=== PATIENT | male | born 1950 | race Caucasian/White ===

== ENCOUNTER → 2017-01-23 | Outpatient (CLI) | payer OTHER ==
[~2017-01-23] MED LIST: ASPI81TA28 PO; BNC/20125 PO; SIMV10TA2 PO
[2017-01-23 11:17] LABS: ESTIMATED AVERAGE GLUCOSE 120 mg/dl; HA1C FLAG Normal (Normal)
[2017-01-23 11:29] LABS: CALCIUM 8.8 mg/dl (8.5-10.1)
[2017-01-23 11:32] LABS: ALT/SGPT 22 U/L (12-78); BLOOD UREA NITROGEN 22 mg/dl (7-18); BUN/CREATININE RATIO 22.7 (10-20); CARBON DIOXIDE 26 mmol/L (21-32); CHLORIDE 107 mmol/L (98-107); CHOLESTEROL 159 mg/dl (0-200); CREATININE 0.98 mg/dl (0.60-1.40); GLUCOSE 103 mg/dl (70-99); POTASSIUM 3.4 mmol/L (3.5-5.1); SODIUM 144 mmol/L (136-145); TRIGLYCERIDES 34 mg/dl (0-150); VERY LOW DENSITY LIPOPROT CALC 7 mg/dl
[2017-01-23 11:36] LABS: ALKALINE PHOSPHATASE 34 U/L (45-117); AST/SGOT 15 U/L (15-37); CHOLESTEROL/HDL RATIO 2.6; HDL CHOLESTEROL 61 mg/dl; LDL CHOLESTEROL CALCULATED 91 mg/dl
== END | disposition home or self-care (01) ==
LOC: C.LABBC 07:52
PROVIDERS: ATTEND Urology
DX: I10 Essential (primary) hypertension (principal); E78.00 Pure hypercholesterolemia, unspecified; Z11.59 Encounter for screening for other viral diseases; R73.03 Prediabetes

== ENCOUNTER → 2017-10-20 | Outpatient (CLI) | payer OTHER ==
[2017-10-20 11:08] LABS: HEMOGLOBIN A1C 5.8 % (4.5-5.6)
[2017-10-20 11:20] LABS: ALBUMIN 3.7 gm/dl (3.4-5.0); ALKALINE PHOSPHATASE 32 U/L (45-117); ALT/SGPT 22 U/L (12-78); AST/SGOT 13 U/L (15-37); BLOOD UREA NITROGEN 26 mg/dl (7-18); CALCIUM 8.6 mg/dl (8.5-10.1); CARBON DIOXIDE 26 mmol/L (21-32); CREATININE 0.89 mg/dl (0.60-1.40); GLUCOSE 101 mg/dl (70-99); SODIUM 139 mmol/L (136-145); TOTAL PROTEIN 7.3 gm/dl (6.4-8.2)
== END | disposition home or self-care (01) ==
LOC: C.LABBC 07:23
PROVIDERS: ATTEND Nurse Practitioner Adult Health
DX: I10 Essential (primary) hypertension (principal); E78.00 Pure hypercholesterolemia, unspecified; R73.03 Prediabetes; W57.XXXA Bitten or stung by nonvenomous insect and other nonvenomous arthropods, initial encounter; X58.XXXA Exposure to other specified factors, initial encounter; C61 Malignant neoplasm of prostate

== ENCOUNTER 2017-10-25 03:45 | Emergency (ER) | payer OTHER ==
[~2017-10-25] VITALS: Ht 177.8 cm; Wt 88.5 kg
[2017-10-25 03:50] VITALS: TEMP 36.7; Ht 177.8 cm; Wt 88.5 kg
[2017-10-25] MEDS ORDERED: LIDOCAINE/EPINEPHRINE 1% 20 ML VIAL ONE (04:11)
--- NOTE | 2017-10-25 04:28 | EMERGENCY ROOM VISIT NOTE ---
History Report prepared by Reinaldo: Elinor Sousa Under the Supervision of: Jaqueline RondonO. First contact with patient: 03:53 Chief Complaint: LACERATION/CUT (SUT/DERMABOND) Stated Complaint: LACERATION TO FOREHEAD ABOVE RT EYE Nursing Triage Summary: Patient reports that he woke up, fell out of his bed and hit his head on the end table. Patient reports that he did not have LOC. Laceration above right eyebrow , steri strip type dressing on from home. History of Present Illness The patient is a 67 year old male who presents to the Emergency Room with complaints of an episode of a laceration occurring prior to arrival. The patient states that he was dreaming and rolled out of bed. He reports that he hit his head on the wooden night stand that has been there for 20 years. He states that this has never happened to him before. He reports that he woke his up to look at it and she said to come here in case he needs stitches. The patient denies dizziness, lightheadedness, blurry visions, double vision, a headache, numbness, and tingling. He notes that he takes Aspirin. He notes that he is unsure when his last Tetanus shot was. Source of History: patient Onset: prior to arrival Position: head Quality: other (laceration, bleeding) Timing: other (episode) Associated Symptoms: No headache, No numbness Note: The patient denies dizziness, lightheadedness, blurry visions, double vision, and tingling Review of Systems See HPI for pertinent positives & negatives. A total of 6 systems reviewed and were otherwise negative. Past Medical & Surgical Medical Problems: (1) HTN (hypertension) Family History No pertinent family history Social History Smoking Status: Never Smoker Marital Status: Housing Status: lives with family Occupation Status: employed Current/Historical Medications Scheduled Aspirin (Aspirin Ec), 81 MG PO DAILY Olmesartan/Hctz (Benicar Hct 20/12.5), 1 TAB PO DAILY Simvastatin (Zocor), 10 MG PO QAM Allergies Coded Allergies: No Known Allergies (Verified , 10/03/02) Physical Exam Vital Signs Date Time Temp Pulse Resp B/P (MAP) Pulse Ox O2 Delivery O2 Flow Rate FiO2 10/25/17 04:54 64 18 128/78 96 10/25/17 03:50 36.7 64 18 131/88 96 Room Air Physical Exam GENERAL: alert, well appearing, well nourished, no distress, non-toxic HEAD: 1.5 cm vertical laceration just superior ro the right eyebrow. EYE EXAM: normal conjunctiva, PERRL and EOM's grossly intact OROPHARYNX: no exudate, no erythema, lips, buccal mucosa, and tongue normal and mucous membranes are moist NECK: supple, no nuchal rigidity, no adenopathy, non-tender, FROM, no midline tenderness or step off SKIN: no rashes and no bruising UPPER EXTREMITIES: upper extremities are grossly normal. Full range of motion, no deformities, normal pulses. LOWER EXTREMITIES: No pitting edema. Full range of motion, no deformities, normal pulses. NEURO EXAM: Normal sensorium, cranial nerves II-XII grossly intact, normal speech, no gross weakness of arms, no gross weakness of legs. Medical Decision & Procedures Medications Administered Medications (Trade) Dose Ordered Sig/Mariajose Route Start Time Stop Time Status Last Admin Dose Admin Diphtheria/ Pertussis/Tetanus Vacc (Adacel Inj) 0.5 ml ONCE ONCE IM. 10/25/17 04:30 10/25/17 04:31 DC 10/25/17 04:44 0.5 ML Procedure Location: Superior to the right eyebrow Total length: 1.5 cm Complexity: Simple Verbal consent was obtained after the risks and benefits were explained, including but not limited to bleeding, scarring, infection, pain, and bone/joint /nerve damage. At this time, the risks of the procedure are less than the risks of NOT performing the procedure. A time out was taken and the correct patient and site identified. The skin was prepped with betadine. The target area was anesthetized with 1 ml of 1% lidocaine with epinephrine. Copious irrigation was performed using normal saline. The skin was re-prepped with betadine and a sterile field set. The wound was explored for foreign bodies and none found. Examination revealed no injury to deep structures such as tendons, bone, or significant blood vessels. Debridement was not performed. The wound edges were approximated using 4, 6-0 simple interrupted nylon sutures. Hemostasis and excellent approximation was achieved. Antibacterial ointment and a sterile dressing applied. Detailed wound care instructions and signs and symptoms of infection reviewed with the patient. No complications and the patient tolerated the procedure well. ED Course 0404: The patient was evaluated in room B3B. A complete history and physical exam was performed. I sutured his laceration at this time. I discussed the findings and the treatment plan with the patient. He verbalizes agreement and understanding. The patient was discharged home. 0411: Ordered Lidocaine/Epinephrine 1 ml INJ. 0430: Ordered Adacel Inj 0.5 ml IM. Medical Decision Patient well-appearing here and no symptoms prior to bed. Patient awoke when he hit the floor. Patient with no other symptoms other than concern over the possible need for stitches. Patient with no headaches, no additional loss of consciousness, no dizziness no vision changes, and a normal nonfocal neuro exam at bedside. Patient well-appearing here ambulating with a steady gait. Patient with no nausea or vomiting. Sutures placed per procedure note. Tetanus shot updated at bedside. Discussed with patient bedside precautions regarding head injuries, as well as precautions regarding wound care and laceration. Discussed with patient follow-up with family doctor, timing of suture removal, symptoms to watch and return for, he verbalized understanding and was agreeable with plan. Patient well-appearing at time of discharge, no orthostatic symptoms, no neuro deficits, ambulate with a steady gait, and comfortable going home. I have a low suspicion for any additional occult traumatic injury. Medication Reconcilliation Current Medication List: was personally reviewed by me Blood Pressure Screening Patient's blood pressure: Normal blood pressure Blood pressure disposition: Did not require urgent referral Impression Primary Impression: Facial laceration Scribe Attestation The scribe's documentation has been prepared under my direction and personally reviewed by me in its entirety. I confirm that the note above accurately reflects all work, treatment, procedures, and medical decision making performed by me. Departure Information Dispostion Home / Self-Care Referrals Dana Schmitt .DOV (PCP) Forms HOME CARE DOCUMENTATION FORM, IMPORTANT VISIT INFORMATION Patient Instructions My [facility] Additional Instructions Please follow-up with your family doctor to recheck the wound. Your stitches need to be removed in 5-7 days. Please monitor for redness, drainage, or fevers from the wounds that may suggest infection. If you see this needs to be rechecked as you may possibly need antibiotics. If you develop a headache, dizziness, vision changes, ringing in the ears, neck or back pain, nausea or vomiting, numbness or tingling, or other new or concerning symptoms please return to the ER immediately. Please continue your regular medications as prescribed. Please keep the area clean and covered until it is healed and the stitches are removed. May remove the bandage to shower or wash her face. Please do not scrub over the wound or use any harsh or abrasive cleansing agents. Please make a note in your personal records that your tetanus shot was updated tonight. Problem Qualifiers Primary Impression: Facial laceration Encounter type: initial encounter Qualified Codes: S01.81XA - Laceration without foreign body of other part of head, initial encounter
[2017-10-25] MEDS ORDERED: DIPHTHERIA/TETANUS/PERTUSSIS 0.5 ML SYR/VIAL IM. ONE (04:30)
[2017-10-25 04:54] VITALS: BP 128/78; PULSE 64; O2SAT 96
== END 2017-10-25 04:55 | disposition home or self-care (01) ==
LOC: C.EDB 03:47
DX: S01.81XA Laceration without foreign body of other part of head, initial encounter (principal); Z23 Encounter for immunization; W22.09XA Striking against other stationary object, initial encounter; Y93.84 Activity, sleeping; Y92.003 Bedroom of unspecified non-institutional (private) residence as the place of occurrence of the external cause; Y99.8 Other external cause status; I10 Essential (primary) hypertension; Z79.82 Long term (current) use of aspirin

== ENCOUNTER 2017-11-02 06:07 | Emergency (ER) | payer OTHER ==
[~2017-11-02] VITALS: Ht 177.8 cm; Wt 88.9 kg
[2017-11-02 06:11] VITALS: BP 125/83; PULSE 67; TEMP 36.7; O2SAT 97; Ht 177.8 cm; Wt 88.9 kg
--- NOTE | 2017-11-02 06:25 | EMERGENCY ROOM VISIT NOTE ---
ED Visit Note First contact with patient: 06:14 CHIEF COMPLAINT: Suture removal HISTORY OF PRESENT ILLNESS: This 67-year-old male patient returns to the ED today for removal of sutures that were placed 8 days ago. There has been no swelling, redness, or drainage from the wound. The patient feels like the laceration is healing well. REVIEW OF SYSTEMS: A 6 system review of systems was completed with positives and pertinent negatives listed in the HPI. PMH: Unchanged from previous visit. ALLERGIES: No known allergies PHYSICAL EXAM: Vital Signs: Reviewed Nurse's notes, vital signs stable. GENERAL : White male, in no acute distress. SKIN: There is a sutured wound on the right forehead with no signs of infection. There is no erythema, swelling, or tenderness. EMERGENCY DEPARTMENT COURSE: 4 sutures were removed without any difficulty and there was no separation of the wound edges. The patient was discharged home in good condition. DIAGNOSIS: Healing laceration and suture removal DISCHARGE INSTRUCTIONS AND TREATMENT: Wash any remaining crusts off of the wound today and resume your normal activities. Current/Historical Medications Scheduled Aspirin (Aspirin Ec), 81 MG PO DAILY Olmesartan/Hctz (Benicar Hct 20/12.5), 1 TAB PO DAILY Simvastatin (Zocor), 10 MG PO QAM Allergies Coded Allergies: No Known Allergies (Verified , 10/03/02) Vital Signs Date Time Temp Pulse Resp B/P (MAP) Pulse Ox O2 Delivery O2 Flow Rate FiO2 11/02/17 06:11 36.7 67 18 125/83 97 Room Air Departure Information Impression Primary Impression: Encounter for removal of sutures Dispostion Home / Self-Care Condition GOOD Referrals Dana Schmitt ., DOV (PCP) Forms HOME CARE DOCUMENTATION FORM, IMPORTANT VISIT INFORMATION Patient Instructions [facility], ED Scar Tips to Minimize Additional Instructions Wash off any remaining debris and return to activity as tolerated
== END 2017-11-02 06:30 | disposition home or self-care (01) ==
LOC: C.EDB 06:09
DX: Z48.02 Encounter for removal of sutures (principal); S01.81XD Laceration without foreign body of other part of head, subsequent encounter; X58.XXXD Exposure to other specified factors, subsequent encounter; Z79.82 Long term (current) use of aspirin

== ENCOUNTER → 2017-12-29 | Outpatient (CLI) | payer OTHER ==
[~2017-12-29] MED LIST changes: +GADAVIST IV PRN
--- NOTE | 2017-12-29 16:44 | DIAGNOSTIC IMAGING REPORT ---
BRAIN COMBO HISTORY: 67 years-old Male M62.81 Leg [id number] Leg [id number] Hand [id number] acute numbness of the bilateral arms and legs COMPARISON: Cervical spine MRI of same day, brain MRI 12/17/2012 TECHNIQUE: Multiplanar multisequence MRI of the brain was obtained both with and without the use of 8.5 mL Gadavist FINDINGS: [employer] Engineer localizer images demonstrate no gross abnormality. There is no restricted diffusion to suggest acute or subacute infarction. Midline structures including the corpus callosum, brainstem, optic chiasm, pituitary and pineal glands appear unremarkable on the sagittal T1 series. No cerebellar tonsillar herniation. Degenerative changes of the imaged cervical spine. No acute intracranial hemorrhage, midline shift, abnormal extra-axial collections, hydrocephalus or intracranial mass. Mild cerebral atrophy with mild to moderate degree of scattered T2/flair hyperintensities within the subcortical and periventricular white matter which has mildly progressed from comparison study 12/17/2012 suggesting chronic microvascular ischemic changes. There is no pathologic blooming artifact on the T2 star series. Major flow voids appear patent. Orbits are within normal limits. Mastoid air cells and paranasal sinuses are generally clear. Hypoplasia of the left frontal sinus. Soft tissues and skull appear unremarkable. There is no abnormal intra-axial or extra-axial enhancement identified. IMPRESSION: 1. No acute intracranial abnormality identified. 2. No evidence of acute or subacute infarction or abnormal enhancement. 3. Mild atrophy with chronic microvascular ischemic changes, slightly progressed from comparison study 12/17/2012. The above report was generated using voice recognition software. It may contain grammatical, syntax or spelling errors. Electronically signed by: Seamus Mcclure M.D. 12/29/2017 4:43 PM Dictated Date/Time: 12/29/2017 4:37 PM
--- NOTE | 2017-12-29 17:54 | DIAGNOSTIC IMAGING REPORT ---
CERVICAL SPINE COMBO HISTORY: 67-year-old male M62.81 Leg [id number] Leg numbness R20.0 Hand numbness. [id number]. Acute numbness of the upper and lower extremities. History of prostate cancer. COMPARISON: Brain MRI of same day. TECHNIQUE: Multiplanar multisequence MRI of the cervical spine was obtained both with and without the use of 8.5 mL Gadavist. FINDINGS: Localizer images demonstrate no gross extraspinal abnormality. Signal within the imaged cervical spinal cord is within normal limits. Posterior fossa structures are unremarkable. Modic type I endplate degenerative changes are noted on the right at C4-C5 with moderate intervertebral disc space narrowing at C4-C5 and C5-C6. Discogenic degenerative changes as below. There is no abnormal enhancement identified. C2-C3: Uncovertebral spurring with mild intervertebral disc space narrowing and mild facet arthrosis. Mild right-sided foraminal narrowing without left foraminal or central canal stenosis. C3-C4: Mild intervertebral disc space narrowing and uncovertebral spurring with mild right-sided facet arthrosis. No central canal or foraminal narrowing. C4-C5: Moderate intervertebral disc space narrowing with uncovertebral spurring, circumferential annular disc bulge and minimal facet arthrosis. Additionally, there is a left paracentral disc extrusion which measures 0.4 x 0.7 x 1.2 cm in AP, transverse and craniocaudal dimensions extending superiorly to the level of the mid C4 vertebral body resulting in moderate central canal, moderate left lateral recess and mild left foraminal narrowing. Additionally, there is a broad-based right paracentral/right lateral recess disc protrusion measuring up to 9 mm transversely which causes moderate central canal, severe right lateral recess and moderate to severe right foraminal narrowing.. C5-C6: Moderate intervertebral disc space narrowing with uncovertebral spurring, moderate facet arthrosis with posterior disc bulge causing mild central canal, severe right foraminal and moderate left foraminal narrowing. C6-C7: Mild intervertebral disc space narrowing with uncovertebral spurring and mild to moderate facet arthrosis. No central canal or foraminal narrowing. C7-T1: Minimal uncovertebral spurring and facet arthrosis without central canal or foraminal narrowing. IMPRESSION: 1. At C4-C5, left paracentral disc extrusion and right paracentral/right lateral recess disc protrusion result in moderate central canal, moderate to severe right and mild left foraminal narrowing. 2. At C5-C6 there is mild central canal, severe right and moderate left foraminal narrowing secondary to discogenic degenerative changes and mild facet arthrosis. 3. Modic type I endplate degenerative changes at C4-C5. 4. No abnormal enhancement. The above report was generated using voice recognition software. It may contain grammatical, syntax or spelling errors. Dictated: 12/29/2017 4:43 PM Transcribed: 12/29/2017 5:54 PM [email or web address] Electronically signed by: Seamus Mcclure M.D. 12/29/2017 7:44 PM Dictated Date/Time: 12/29/2017 4:43 PM
== END | disposition home or self-care (01) ==
LOC: C.MRI 15:06
PROVIDERS: ATTEND Nurse Practitioner Adult Health
DX: M62.81 Muscle weakness (generalized) (principal); R20.0 Anesthesia of skin

== ENCOUNTER → 2017-12-29 | Outpatient (CLI) | payer OTHER ==
[~2017-12-29] MED LIST changes: -GADAVIST IV PRN
[2017-12-29 10:37] LABS: BASO % 0.7 %; BASO ABS # 0.03 K/uL (0-0.2); EOS % 3.8 %; EOS ABS # 0.17 K/uL (0-0.5); HEMATOCRIT 41.3 % (42-52); HEMOGLOBIN 14.1 g/dL (14.0-18.0); LYMPH ABS # 0.99 K/uL (1.2-3.4); MEAN CELL VOLUME 88.6 fL (80-100); MEAN CORPUSCULAR HEMOGLOBIN 30.3 pg (25-34); MEAN CORPUSCULAR HGB CONC 34.1 g/dl (32-36); MEAN PLATELET VOLUME 10.1 fL (7.4-10.4); MONO % 8.5 %; MONO ABS # 0.38 K/uL (0.11-0.59); NEUT ABS # 2.92 K/uL (1.4-6.5); PLATELET COUNT 225 K/uL (130-400); RED CELL DISTRIBUTION WIDTH CV 13.2 % (11.5-14.5); RED CELL DISTRIBUTION WIDTH SD 43.1 fL (36.4-46.3); WHITE BLOOD COUNT 4.49 K/uL (4.8-10.8)
[2017-12-29 10:54] LABS: CREATININE 1.01 mg/dl (0.60-1.40)
== END | disposition home or self-care (01) ==
LOC: C.LABBC 07:30
PROVIDERS: ATTEND Nurse Practitioner Adult Health
DX: M62.81 Muscle weakness (generalized) (principal); R20.0 Anesthesia of skin; R53.83 Other fatigue

== ENCOUNTER 2023-12-01 14:39 | Observation (INO) ==
--- NOTE | 2023-12-01 16:16 | XRay Report ---
XR chest 1V portable CLINICAL HISTORY: dizziness TECHNIQUE: Single frontal radiograph of the chest was obtained. Comparison: Comparison is made to chest radiograph 05/10/2011 FINDINGS: No lines and tubes are seen. Cardiomegaly is noted. The aortic arch is calcified. The lungs are clear with elevation of left hemidiaphragm. No evidence of pleural effusion or pneumothorax. IMPRESSION: No acute chest disease. ACT 112: Negative or not required by law. Electronically signed by: Ozzy Ibarra M.D. 12/01/2023 4:14 PM
[2023-12-01 16:27] LABS: Appearance Urine Clear (Clear); Bilirubin Urine Negative (Negative); Blood Urine Negative (Negative); Color Urine Yellow; Glucose Urine UA Negative (Negative); Ketones Urine Negative (Negative); Leukocyte Esterase Urine Negative (Negative); Nitrite Urine Negative (Negative); Protein Urine Negative (Negative); Urobilinogen Urine Negative (Negative); pH Urine 7.5 (4.5-7.5)
[2023-12-01 16:28] LABS: Basophils # (auto) 0.03 K/uL (0.00-0.20); Basophils % (auto) 0.6 %; Eosinophils # (auto) 0.11 K/uL (0.00-0.50); Eosinophils % (auto) 2.1 %; Hematocrit (blood only) 42.3 % (42.0-52.0); Hemoglobin 13.7 g/dl (14.0-18.0); Immature Granulocytes # (auto) 0.02 K/uL (0.01-0.20); Immature Granulocytes % (auto) 0.4 %; Lymphocytes # (auto) 1.14 K/uL (1.20-3.40); Lymphocytes % (auto) 21.8 %; Mean Corpuscular Hemoglobin 28.4 pg (25.0-34.0); Mean Corpuscular Hgb Conc 32.4 g/dL (32.0-36.0); Mean Corpuscular Volume 87.8 fL (80.0-100.0); Monocytes # (auto) 0.51 K/uL (0.11-0.59); Monocytes % (auto) 9.8 %; Neutrophils # (auto) 3.42 K/uL (1.40-6.50); Neutrophils % (auto) 65.3 %; Platelet Count 197 K/uL (130-400); RDW Coefficient of Variation 13.2 % (11.5-14.5); RDW Standard Deviation 42.6 fL (36.4-46.3); Red Blood Count 4.82 M/uL (4.70-6.10); White Blood Count 5.23 K/ul (4.8-10.8)
--- NOTE | 2023-12-01 16:39 | Emergency Department Note ---
Impression & Plan Dizziness, Ambulatory dysfunction, Generalized weakness ED Provider Note HISTORY OF PRESENT ILLNESS: Patient is 73-year-old male presenting with dizziness. Patient reports for the last 3 days he has been very dizzy, described as feeling like he is spinning "on a magic carpet" and feels like he is going to pass out. He states that he has to stand up and wait for a few minutes before he is able to ambulate again. He denies any recent falls or head injury. Denies any chiropractic manipulation of his neck. Denies any chest pain or shortness of breath. Denies any numbness or tingling or weakness in his extremities. Denies any nausea or vomiting. Denies recent medication changes. He went to see his primary care provider today and was bradycardic and they sent him to the emergency department for further evaluation. Patient is on aspirin daily. ROS: as above PHYSICAL EXAM: Constitutional: Patient appears in no acute distress. HENT: Head: Normocephalic and atraumatic. Eyes: EOMI, PERRL Mouth/Throat: Mucous membranes moist. Neck: Trachea midline. Neck supple. Cardiovascular: Bradycardic with regular rhythm. No murmurs, rubs or gallops. Intact distal pulses. Pulmonary/Chest: No respiratory distress. Breath sounds clear and equal bilaterally. No wheezes or rales. Abdominal: Abdomen soft, no tenderness, rebound or guarding. Musculoskeletal: No edema, tenderness or deformity noted. Skin: Warm and dry. No rash, erythema, pallor or cyanosis Psychiatric: Appropriate mood and affect for situation. Neurological: Alert and keenly responsive. CN II-XII grossly intact, moving all extremities equally and fully. MDM: - Vitals signs showed hypertension and bradycardia. - History obtained via patient. History as above. - Chronic conditions affecting care: HTN; HLD; hypothyroidism; TIA - Differential diagnoses include, but are not limited to: CVA; dysrhythmia; intracranial hemorrhage; ACS; electrolyte abnormality; pneumonia; UTI - Order placed for continuous cardiac monitoring. At this time, monitor showed rate of 54 bpm with normal sinus rhythm, per my interpretation. - External medical records reviewed. EMS run sheet was reviewed. She was given 300 cc of fluid and route with EMS and 1 dose of atropine. - EKG interpreted by myself showed normal sinus rhythm. Rate 62 bpm. QT 398. No acute ischemic changes. - Laboratory workup interpreted by myself showed normal WBC; hypokalemia (K 3.3); normal troponin; elevated TSH but normal T4 - UA negative for infection - CXR negative for pneumonia, per my interpretation - CT head wo contrast negative for acute pathology, per radiology - Discussion was had with hims manager about patient's case and need for admission - Hospitalist consulted for admission - Patient admitted to [facility] for further evaluation and management. ASSESSMENT AND PLAN: Diagnosis: dizziness; ambulatory dysfunction; generalized weakness Plan: admit Past Med/Surg History Medical History History of back problems Prostate cancer Anemia Osteoarthritis Transient ischemic attack (TIA) Right knee pain Prediabetes Organic impotence Obstructive sleep apnea Nephrolithiasis Hypothyroidism Hypercholesterolemia Gait instability Esophageal reflux Degenerative cervical spinal stenosis Cervical radiculopathy Carpal tunnel syndrome, bilateral Allergic rhinitis due to pollen Adenocarcinoma of prostate (~2010) HTN (hypertension) Surgical History History of prostate surgery (05/24/11) H/O lymph node biopsy History of facial surgery History of colonoscopy History of tooth extraction History of tonsillectomy Family History Mother Colorectal cancer Gastric cancer Denies family history of Ovarian cancer Prostate cancer Myocardial infarction Breast cancer Lung cancer Social History Smoking Status: Never smoker Second Hand Exposure: Yes (at work has expsure ); Do You Dip or Chew Tobacco: No; Hx Alcohol Use: Yes Alcohol type: beer and wine Alcohol Intake Frequency: 2-3 x/Week Alcohol Intake Frequency Comment: every other day Hx Substance Use: No Preferred Language: Danish Communication Ability: Effective Visual Impairment: Diminished Hearing Ability: Normal Wood Type Finisher Required: No Beliefs That Will Affect Care: None marital status: / Current Living Situation: Alone current occupational status: employed 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 How many Children do You have: 2 Feels Safe at Home: Yes Childhood Exposure to Second-Hand Smoke: Yes (father smoked) Diet: regular caffeine: Yes (tea in morning ) during the past year weight has: increased > 10 lbs Dental Care, Regularly: Yes Physical Activity Frequency: Daily Physical Activity Frequency Comment: active lifestyle walks a lot for job Seatbelt Use: always Sunscreen Use: No Assistive Devices: Glasses Allergies Allergies Allergy/AdvReac Type Severity Reaction Status Date / Time No Known Drug Allergies Allergy Verified 12/01/23 13:12 Home Meds Home Medications Medication Instructions Recorded Confirmed aspirin 81 mg tablet,delayed 81 mg PO QAM #30 tabs 04/11/19 12/01/23 release esomeprazole magnesium 20 mg 40 mg PO QAM 09/30/19 12/01/23 capsule,delayed release (Nexium) cholecalciferol (vitamin D3) 50 50 mcg PO DAILY 04/27/21 12/01/23 mcg (2,000 unit) capsule Previous Rx's Medication Instructions Recorded Auto Titrating CPAP #1 ea 09/16/20 tadalafil 5 mg tablet 20 mg (4 x 5 mg) PO ONCE PRN 01/05/21 sexual activity #30 tabs losartan 100 mg tablet See Rx Instructions .Route 01/17/23 .COMPLEX #90 tabs hydrochlorothiazide 12.5 mg tablet 12.5 mg PO DAILY #90 tabs 02/01/23 potassium chloride 10 mEq 10 meq PO DAILY #7 caps 05/26/23 capsule,extended release levothyroxine 75 mcg tablet See Rx Instructions .Route 05/30/23 .COMPLEX #90 tabs cyanocobalamin (vitamin B-12) 1,000 mcg subcut DAILY 1 week #7 mL 07/20/23 1,000 mcg/mL injection solution atorvastatin 20 mg tablet 20 mg PO QAM #90 tabs 10/10/23 Results & Data (ED) Vital Signs Vital Signs - 24 hr 12/01/23 14:22 12/01/23 14:44 12/01/23 14:45 Temperature 36.6 C Temperature Source Oral Pulse Rate 74 54 L 63 Pulse Rate [Apical] Pulse Rate from SpO2 Sensor 53 L 61 Pulse Rhythm Regular Pulse Strength Normal Respiratory Rate 18 16 Respiratory Effort / Characteristics Non-Labored Spontaneous Respiratory Depth Normal Respiratory Pattern Regular Blood Pressure 166/99 H Blood Pressure [Right Arm] Blood Pressure Mean 121 Blood Pressure Mean [Right Arm] Blood Pressure Position Sitting Pulse Oximetry 98 99 Oxygen Delivery Method Room Air Sepsis Recent Fever Within 48 Hours No Sepsis New/Unexplained Change in Mental Status No Sepsis Action Taken by Nursing No Action Required 12/01/23 14:56 12/01/23 15:00 12/01/23 15:14 Temperature Temperature Source Pulse Rate 58 L Pulse Rate [Apical] Pulse Rate from SpO2 Sensor 58 L Pulse Rhythm Pulse Strength Respiratory Rate 17 Respiratory Effort / Characteristics Respiratory Depth Respiratory Pattern Blood Pressure 151/97 H Blood Pressure [Right Arm] Blood Pressure Mean 107 Blood Pressure Mean [Right Arm] Blood Pressure Position Pulse Oximetry 97 100 Oxygen Delivery Method Room Air Sepsis Recent Fever Within 48 Hours Sepsis New/Unexplained Change in Mental Status Sepsis Action Taken by Nursing 12/01/23 15:14 12/01/23 15:30 12/01/23 15:30 Temperature Temperature Source Pulse Rate 54 L 54 L Pulse Rate [Apical] Pulse Rate from SpO2 Sensor 53 L 53 L Pulse Rhythm Pulse Strength Respiratory Rate 15 15 Respiratory Effort / Characteristics Respiratory Depth Respiratory Pattern Blood Pressure 149/88 H Blood Pressure [Right Arm] Blood Pressure Mean 105 Blood Pressure Mean [Right Arm] Blood Pressure Position Pulse Oximetry 98 98 Oxygen Delivery Method Sepsis Recent Fever Within 48 Hours Sepsis New/Unexplained Change in Mental Status Sepsis Action Taken by Nursing 12/01/23 15:54 12/01/23 16:00 12/01/23 16:00 Temperature Temperature Source Pulse Rate 59 L 65 Pulse Rate [Apical] Pulse Rate from SpO2 Sensor 64 Pulse Rhythm Pulse Strength Respiratory Rate 21 Respiratory Effort / Characteristics Respiratory Depth Respiratory Pattern Blood Pressure 183/117 H Blood Pressure [Right Arm] Blood Pressure Mean 136 Blood Pressure Mean [Right Arm] Blood Pressure Position Pulse Oximetry 96 Oxygen Delivery Method Sepsis Recent Fever Within 48 Hours Sepsis New/Unexplained Change in Mental Status Sepsis Action Taken by Nursing 12/01/23 16:30 12/01/23 17:00 12/01/23 17:27 Temperature Temperature Source Pulse Rate 50 L 52 L 54 L Pulse Rate [Apical] Pulse Rate from SpO2 Sensor 55 L 51 L 55 L Pulse Rhythm Pulse Strength Respiratory Rate 18 18 14 Respiratory Effort / Characteristics Respiratory Depth Respiratory Pattern Blood Pressure Blood Pressure [Right Arm] Blood Pressure Mean Blood Pressure Mean [Right Arm] Blood Pressure Position Pulse Oximetry 99 97 98 Oxygen Delivery Method Sepsis Recent Fever Within 48 Hours Sepsis New/Unexplained Change in Mental Status Sepsis Action Taken by Nursing 12/01/23 17:27 12/01/23 17:30 12/01/23 17:30 Temperature Temperature Source Pulse Rate 49 L Pulse Rate [Apical] Pulse Rate from SpO2 Sensor 50 L Pulse Rhythm Pulse Strength Respiratory Rate 15 Respiratory Effort / Characteristics Respiratory Depth Respiratory Pattern Blood Pressure 142/92 H 158/90 H Blood Pressure [Right Arm] Blood Pressure Mean 114 100 Blood Pressure Mean [Right Arm] Blood Pressure Position Pulse Oximetry 95 Oxygen Delivery Method Sepsis Recent Fever Within 48 Hours Sepsis New/Unexplained Change in Mental Status Sepsis Action Taken by Nursing 12/01/23 18:07 12/01/23 18:10 12/01/23 18:10 Temperature Temperature Source Pulse Rate 49 L 53 L Pulse Rate [Apical] Pulse Rate from SpO2 Sensor Pulse Rhythm Pulse Strength Respiratory Rate 5 L 27 H Respiratory Effort / Characteristics Respiratory Depth Respiratory Pattern Blood Pressure 155/91 H Blood Pressure [Right Arm] Blood Pressure Mean 104 Blood Pressure Mean [Right Arm] Blood Pressure Position Pulse Oximetry 96 Oxygen Delivery Method Sepsis Recent Fever Within 48 Hours Sepsis New/Unexplained Change in Mental Status Sepsis Action Taken by Nursing 12/01/23 19:23 Temperature Temperature Source Pulse Rate Pulse Rate [Apical] 62 Pulse Rate from SpO2 Sensor Pulse Rhythm Pulse Strength Respiratory Rate 18 Respiratory Effort / Characteristics Respiratory Depth Respiratory Pattern Blood Pressure Blood Pressure [Right Arm] 172/100 H Blood Pressure Mean Blood Pressure Mean [Right Arm] 124 Blood Pressure Position Pulse Oximetry 95 Oxygen Delivery Method Room Air Sepsis Recent Fever Within 48 Hours Sepsis New/Unexplained Change in Mental Status Sepsis Action Taken by Nursing Laboratory Data 12/01/23 Unknown 12/01/23 Unknown Lab Results 12/01/23 Range/Units Unknown WBC 5.23 (4.8-10.8) K/ul RBC 4.82 (4.70-6.10) M/uL Hgb 13.7 L (14.0-18.0) g/dl Hct 42.3 (42.0-52.0) % MCV 87.8 (80.0-100.0) fL MCH 28.4 (25.0-34.0) pg MCHC 32.4 (32.0-36.0) g/dL RDW Std Deviation 42.6 (36.4-46.3) fL RDW Coeff of Vu 13.2 (11.5-14.5) % Plt Count 197 (130-400) K/uL MPV 10.0 (9.4-12.4) fL Immature Gran % (Auto) 0.4 % Neut % (Auto) 65.3 % Lymph % (Auto) 21.8 % [place] % (Auto) 9.8 % Eos % (Auto) 2.1 % Baso % (Auto) 0.6 % Neut # (Auto) 3.42 (1.40-6.50) K/uL Lymph # (Auto) 1.14 L (1.20-3.40) K/uL [place] # (Auto) 0.51 (0.11-0.59) K/uL Eos # (Auto) 0.11 (0.00-0.50) K/uL Baso # (Auto) 0.03 (0.00-0.20) K/uL Immature Gran # (Auto) 0.02 (0.01-0.20) K/uL PT 10.9 (9.0-12.0) Seconds INR 1.0 (0.9-1.1) Sodium 139 (136-145) mmol/L Potassium 3.3 L (3.5-5.1) mmol/L Chloride 104 (98-107) mmol/L Carbon Dioxide 31 (21-32) mmol/L Anion Gap 4 (3-11) BUN 16 (6-23) mg/dl Creatinine 0.78 (0.6-1.4) mg/dl Est Cr Clr Drug Dosing 97.9 ml/min Est GFR ( Amer) 105.3 ml/min Est GFR (Non-Af Amer) 90.8 ml/min BUN/Creatinine Ratio 20.5 H (10-20) Glucose 91 (70-99(Fasting)) mg/dl Calcium 9.1 (8.6-10.3) mg/dl Magnesium 2.1 (1.7-2.4) mg/dl Total Bilirubin 0.7 (0.2-1.0) mg/dl AST 12 L (13-39) U/L ALT 13 (7-52) U/L Alkaline Phosphatase 38 (34-104) U/L Troponin I High Sens 4.9 (0-20) pg/ml Total Protein 7.0 (6.0-8.3) gm/dl Albumin 4.1 (3.4-5.0) gm/dl Globulin 2.9 (2.5-4.0) gm/dl Albumin/Globulin Ratio 1.4 (0.9-2) TSH 4.999 H (0.300-4.500) uIu/ml Free T4 0.88 (0.61-1.60) ng/dl Urine Color Yellow Urine Appearance Clear (Clear) Urine pH 7.5 (4.5-7.5) Ur Specific Winfred 1.010 (1.000-1.030) Urine Protein Negative (Negative) Urine Glucose (UA) Negative (Negative) Urine Ketones Negative (Negative) Urine Blood Negative (Negative) Urine Nitrite Negative (Negative) Urine Bilirubin Negative (Negative) Urine Urobilinogen Negative (Negative) Ur Leukocyte Esterase Negative (Negative) Imaging Data Radiologist's Impression: Chest X-Ray 12/01/23 16:01 XR chest 1V portable CLINICAL HISTORY: dizziness TECHNIQUE: Single frontal radiograph of the chest was obtained. Comparison: Comparison is made to chest radiograph 05/10/2011 FINDINGS: No lines and tubes are seen. Cardiomegaly is noted. The aortic arch is calcified. The lungs are clear with elevation of left hemidiaphragm. No evidence of pleural effusion or pneumothorax. IMPRESSION: No acute chest disease. ACT 112: Negative or not required by law. Electronically signed by: Ozzy Ibarra M.D. 12/01/2023 4:[address] 12/01/23 16:39 CT head/brain wo con CLINICAL HISTORY: dizziness Technique: Contiguous axial CT images of the head were acquired from the base of the skull to the vertex without intravenous contrast administration. Images were viewed in brain, subdural and bone windows. Automated dose lowering techniques and/or adjustment according to patient size were utilized for this exam. Comparison: None available at the time of this dictation. Findings: Areas of decreased attenuation are present in the periventricular and subcortical white matter bilaterally consistent with small vessel ischemic disease. Generalized cerebral atrophy with commensurate enlargement of the ventricles, sulci, and cisterns is also present. There is no acute intracranial hemorrhage or evidence of acute territorial infarction. No shift of the midline structures, mass effect, or extra-axial abnormalities are shown. Atherosclerotic calcifications are present in the intracranial segments of the internal carotid arteries. Imaged portions of the paranasal sinuses and mastoid air cells are clear. The orbits appear normal. There are no acute fractures of the calvaria or scalp swelling. Impression: No acute intracranial hemorrhage, no evidence of acute territorial infarction or other acute intracranial disease process. ACT 112: Negative or not required by law. Electronically signed by: Ozzy Ibarra M.D. 12/01/2023 6:08 PM Discharge Plan Visit Data Chief Complaint: Bradycardia Stated Complaint: DIZZINESS, BRADYCARDIA ED Provider: Christy Varghese Discharge Problem: Dizziness, Ambulatory dysfunction, Generalized weakness Forms Stand Alone Forms: My [facility] Prescriptions Prescriptions: No Action losartan 100 mg tablet See Rx Instructions .ROUTE .COMPLEX Qty: 90 3RF Dose Instruction: TAKE 1 TABLET BY MOUTH EVERY DAY Rx Instructions: TAKE 1 TABLET BY MOUTH EVERY DAY hydrochlorothiazide 12.5 mg tablet 12.5 mg PO DAILY Qty: 90 3RF potassium chloride 10 mEq capsule, extended release 10 meq PO DAILY Qty: 7 0RF levothyroxine 75 mcg tablet See Rx Instructions .ROUTE .COMPLEX Qty: 90 3RF Dose Instruction: TAKE 1 TABLET BY MOUTH EVERY MORNING Rx Instructions: TAKE 1 TABLET BY MOUTH EVERY MORNING atorvastatin 20 mg tablet 20 mg PO QAM Qty: 90 3RF aspirin 81 mg tablet,delayed release (DR/EC) 81 mg PO QAM Qty: 30 tadalafil 5 mg tablet 20 mg PO ONCE PRN (Reason: sexual activity) Qty: 30 11RF cyanocobalamin (vitamin B-12) 1,000 mcg/mL solution 1,000 mcg subcut DAILY 7 Days Qty: 7 0RF Rx Instructions: Weekly injection for 4 weeks, transition to once monthly total of 6 months and reevaluate (DME) Auto Titrating CPAP Misc See Rx Instructions .ROUTE .MEDSUPPLY Qty: 1 0RF Rx Instructions: 8-15 cm of water, mask fit to patient comfort, heated modification, compliance download capabilities cholecalciferol (vitamin D3) 50 mcg (2,000 unit) capsule 50 mcg PO DAILY esomeprazole magnesium [Nexium] 20 mg Capsule,Delayed Release(Dr/Ec) 40 mg PO QAM Referrals Referrals: Orlando German, [Primary Care Provider] -
[2023-12-01 16:48] LABS: Albumin Globulin Ratio 1.4 (0.9-2); Albumin Level 4.1 gm/dl (3.4-5.0); BUN Creatinine Ratio 20.5 (10-20); Bilirubin,Total 0.7 mg/dl (0.2-1.0); Calcium 9.1 mg/dl (8.6-10.3); Creatinine Clr Calc Pharmacy 97.9 ml/min; Est GFR (African American) 105.3 ml/min; Est GFR (Non-African American) 90.8 ml/min; Globulin 2.9 gm/dl (2.5-4.0); Magnesium 2.1 mg/dl (1.7-2.4); Potassium 3.3 mmol/L (3.5-5.1)
[2023-12-01 16:50] LABS: Troponin I High Sensitivity 4.9 pg/ml (0-20)
[2023-12-01 16:57] LABS: Prothrombin Time 10.9 Seconds (9.0-12.0)
[2023-12-01 17:00] LABS: Thyroid Stimulating Hormone 4.999 uIu/ml (0.300-4.500)
[2023-12-01 17:48] LABS: T4 Free Thyroxine 0.88 ng/dl (0.61-1.60)
--- NOTE | 2023-12-01 18:09 | CT Scan Report ---
CT head/brain wo con CLINICAL HISTORY: dizziness Technique: Contiguous axial CT images of the head were acquired from the base of the skull to the dwight vernell without intravenous contrast administration. Images were viewed in brain, subdural and bone [facility]. Automated dose lowering techniques and/or adjustment according to patient size were utilized for this exam. Comparison: None available at the time of this dictation. Findings: Areas of decreased attenuation are present in the periventricular and subcortical white matter bilate rally consistent with small vessel ischemic disease. Generalized cerebral atrophy with commensurate e nlargement of the ventricles, sulci, and cisterns is also present. There is no acute intracranial hem orrhage or evidence of acute territorial infarction. No shift of the midline structures, mass effect, or extra-axial abnormalities are shown. Atherosclerotic calcifications are present in the intracran ial segments of the internal carotid arteries. Imaged portions of the paranasal sinuses and mastoid air cells are clear. The orbits appear normal. There are no acute fractures of the calvaria or scalp swelling. Impression: No acute intracranial hemorrhage, no evidence of acute territorial infarction or other acute intracra nial disease process. ACT 112: Negative or not required by law. Electronically signed by: Ozzy Ibarra M.D. 12/01/2023 6:08 PM
--- NOTE | 2023-12-01 19:35 | History & Physical Report ---
Date of Service December 01, 2023 Assessment & Plan (1) Symptomatic bradycardia: Plan: Patient presented for acute onset of dizziness and slow heart rate on 11/30 Given atropine via EMS EKG showed NSR at 62 bpm on arrival; has been 48-62bpm in the ED TSH mildly elevated at 4.99; free T4 WNL Orthostatic vitals ordered, pending Lyme ordered, pending Random cortisol ordered, pending Continuous telemetry monitoring Will defer echocardiogram for now, as patient's symptoms are more aligned with that of vertigo A.m. CBC, BMP (2) Dizziness: Plan: Patient reports that he develops symptoms when standing up; feels like the "earth is spinning" Denies hx of stroke or vertigo Head CT negative Will trial meclizine 25 mg p.o. q12h (3) Gait instability: Plan: Patient does not normally ambulate with a walker or cane at home Fall precautions PT/OT consulted (4) Hypokalemia: Plan: Mild; K 3.3 on arrival Patient does take supplemental potassium at home K 20mEq p.o. given Hold HCTZ for now and recheck a.m. labs (5) HTN (hypertension): Plan: Continue Losartan Would caution use of beta-blockers if BP becomes elevated (6) Obstructive sleep apnea: Plan: CPAP HS Plan Disposition: Obs -admit to [facility] telemetry Full code Regular diet VTE PPx: SCDs History of Present Illness Chief Complaint: Bradycardia, dizziness Primary Care Provider: Orlando German DO Lizandro is a 73yo male with PMH of ROLAND, hypothyroidism, esophageal reflux, HTN, Parkinson's disease, B12 deficiency, and depression. He presented via EMS on 11/30 for symptomatic bradycardia. Patient reports that he started to feel dizzy when getting up off the bed on Monday morning. He reports he felt like the "earth was spinning". Patient then went to physical therapy around 7 AM that morning, and felt the same way on the new product trainer stable. She was fine on Monday and , then today (Monday) he had recurrence of his dizziness but felt it was stronger and lasted longer. No history of stroke; may have had a TIA several years ago. Patient reports he did have a similar experience with dizziness when walking outside 3-5y ago, and attributed to not drink enough water. He has been drinking increased water this past week for this reason. Patient reports he sleeps well at night. He does not use a walker or cane for ambulation at home. 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 Denies any rashes, or tick bites. He does note that he goes outside regularly, but not into the scales. No history of thyroid issues. Patient does have a resting tremor in his left hand, for which she has an appointment scheduled on Monday with Dr. Bone (neurology); this tremor started off , then worsened last May. Patient took all his regular morning medications today; no recent change in medications. No smoking, tobacco use, or recent alcohol use. Strangely, he notes that he has had a couple episodes of "drooling" recently. He did have a dental procedure on Thursday 11/23 to have a crown placed, and had to return on Monday the as it came out; was not given any medications on Monday. Patient reports he did not receive atropine in the ambulance, but is unsure what his heart rate was at that time. He is bradycardic at 53 bpm and mildly hypertensive at 172/100 at time of admission. ROS: Patient endorses dizziness/lightheadedness with standing, mild VELASQUEZ, constipation, numbness in his fingers, and leg weakness. Patient denies fever, chills, night-sweats, changes in vision/hearing, fainting, falls, slurred speech, facial droop, ear pain, rashes, chest pain, SOB, chest palpitations, pleuritic CP, cough, abdominal pain, N/V/D, burning with urination, change in urinary/bowel habits, blood in urine/stool, or pain/numbness/tingling in the legs. Allergies Allergy/AdvReac Type Severity Reaction Status Date / Time No Known Drug Allergies Allergy Verified 12/01/23 13:12 Home Medications Medication Instructions Recorded Confirmed Type aspirin 81 mg tablet,delayed 81 mg PO QAM #30 tabs 04/11/19 12/01/23 History release esomeprazole magnesium 20 mg 40 mg PO QAM 09/30/19 12/01/23 History capsule,delayed release (Nexium) Auto Titrating CPAP #1 ea 09/16/20 11/14/23 Rx tadalafil 5 mg tablet 20 mg (4 x 5 mg) PO ONCE PRN 01/05/21 12/01/23 Rx sexual activity #30 tabs cholecalciferol (vitamin D3) 50 50 mcg PO DAILY 04/27/21 12/01/23 History mcg (2,000 unit) capsule losartan 100 mg tablet See Rx Instructions .Route 01/17/23 12/01/23 Rx .COMPLEX #90 tabs hydrochlorothiazide 12.5 mg tablet 12.5 mg PO DAILY #90 tabs 02/01/23 12/01/23 Rx potassium chloride 10 mEq 10 meq PO DAILY #7 caps 05/26/23 12/01/23 Rx capsule,extended release levothyroxine 75 mcg tablet See Rx Instructions .Route 05/30/23 12/01/23 Rx .COMPLEX #90 tabs cyanocobalamin (vitamin B-12) 1,000 mcg subcut DAILY 1 week #7 mL 07/20/23 12/01/23 Rx 1,000 mcg/mL injection solution atorvastatin 20 mg tablet 20 mg PO QAM #90 tabs 10/10/23 12/01/23 Rx Past Med/Surg History Medical History History of back problems Prostate cancer Anemia Osteoarthritis Transient ischemic attack (TIA) Right knee pain Prediabetes Organic impotence Obstructive sleep apnea Nephrolithiasis Hypothyroidism Hypercholesterolemia Gait instability Esophageal reflux Degenerative cervical spinal stenosis Cervical radiculopathy Carpal tunnel syndrome, bilateral Allergic rhinitis due to pollen Adenocarcinoma of prostate (~2010) HTN (hypertension) Surgical History History of prostate surgery (05/24/11) H/O lymph node biopsy History of facial surgery History of colonoscopy History of tooth extraction History of tonsillectomy Family History Mother Colorectal cancer Gastric cancer Denies family history of Ovarian cancer Prostate cancer Myocardial infarction Breast cancer Lung cancer Social History Smoking Status: Never smoker Second Hand Exposure: No; Do You Dip or Chew Tobacco: No; Tobacco Cessation Education Requested by Patient: No Hx Alcohol Use: Yes Alcohol type: beer and wine Alcohol Intake Frequency: 2-3 x/Week Alcohol Intake Frequency Comment: every other day Hx Substance Use: No Preferred Language: Frisian Communication Ability: Effective Visual Impairment: Diminished Hearing Ability: Normal Car Filler Required: No Beliefs That Will Affect Care: None marital status: / Current Living Situation: Family Current Living Situation Comment: lives with younger son current occupational status: employed 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 How many Children do You have: 2 Other Information That Helps Us Care for You: No Feels Safe at Home: Yes Safety Concerns: Feels Safe At This Time Childhood Exposure to Second-Hand Smoke: Yes (father smoked) Diet: regular caffeine: Yes (tea in morning ) during the past year weight has: increased > 10 lbs Dental Care, Regularly: Yes Physical Activity Frequency: Daily Physical Activity Frequency Comment: active lifestyle walks a lot for job Seatbelt Use: always Sunscreen Use: No Assistive Devices: None Review of Systems Review of Systems: See HPI above Physical Exam Physical Exam: General: no acute distress; pleasant affect; non-toxic appearing; well- nourished; cooperative; SpO2 98% on RA HEENT: normocephalic, atraumatic; no scleral icterus; PERRLA w/ EOMs intact; negative nystagmus; moist mucus membrane; vision and hearing grossly intact; pearly packer TM bilaterally, no cerumen Neck: supple; no lymphadenopathy; trachea midline Skin: warm, dry without signs of tenting; no cyanosis; no rashes, bruising, lesions, or erythema noted CV: chest wall NTP; RR, bradycardic at 52 bpm; S1/S2 normal; no murmurs/rubs/gallops; pulses intact and symmetric at radial, DP, and PT Lungs: no acute respiratory distress; symmetrical chest wall expansion; clear breath sounds across all lung deleon w/o adventitious sounds; no wheezing ABD: Soft, NTP; BS present; no rebound/guarding; no distention MSK: no tics or fasciculations; no edema noted in the LEs b/l, nonerythematous; 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 Back: Lower left back TTP Neuro: A&Ox3; resting tremor in the left hand; normal mood and affect; fluent speech; no facial droop no focal deficits; sensation grossly intact in the face/UE/LEs b/l Results & Data Results & Data Vital Signs (Past 12 Hours) Vital Signs Temp Pulse Pulse Resp BP BP Pulse Ox 12/01/23 19:23 62 18 172/100 H 95 12/01/23 18:10 53 L 27 H 96 12/01/23 18:10 155/91 H 12/01/23 18:07 49 L 5 L 12/01/23 17:30 158/90 H 12/01/23 17:30 49 L 15 95 12/01/23 17:27 142/92 H 12/01/23 17:27 54 L 14 98 12/01/23 17:00 52 L 18 97 12/01/23 16:30 50 L 18 99 12/01/23 16:00 65 21 96 12/01/23 16:00 183/117 H 12/01/23 15:54 59 L 12/01/23 15:30 54 L 15 98 12/01/23 15:30 149/88 H 12/01/23 15:14 54 L 15 98 12/01/23 15:14 151/97 H 12/01/23 15:00 58 L 17 100 12/01/23 14:56 97 12/01/23 14:45 63 16 99 12/01/23 14:44 54 L 12/01/23 14:22 36.6 C 74 18 166/99 H 98 O2 Del Method 12/01/23 19:23 Room Air 12/01/23 18:10 12/01/23 18:10 12/01/23 18:07 12/01/23 17:30 12/01/23 17:30 12/01/23 17:27 12/01/23 17:27 12/01/23 17:00 12/01/23 16:30 12/01/23 16:00 12/01/23 16:00 12/01/23 15:54 12/01/23 15:30 12/01/23 15:30 12/01/23 15:14 12/01/23 15:14 12/01/23 15:00 12/01/23 14:56 Room Air 12/01/23 14:45 12/01/23 14:44 12/01/23 14:22 Room Air Laboratory Results Abnormal lab results 12/01/23 Range/Units Unknown Hgb 13.7 L (14.0-18.0) g/dl Lymph # (Auto) 1.14 L (1.20-3.40) K/uL Potassium 3.3 L (3.5-5.1) mmol/L BUN/Creatinine Ratio 20.5 H (10-20) AST 12 L (13-39) U/L TSH 4.999 H (0.300-4.500) uIu/ml Diagnostic Findings Chest X-Ray 12/01/23 16:01 XR chest 1V portable CLINICAL HISTORY: dizziness TECHNIQUE: Single frontal radiograph of the chest was obtained. Comparison: Comparison is made to chest radiograph 05/10/2011 FINDINGS: No lines and tubes are seen. Cardiomegaly is noted. The aortic arch is calcified. The lungs are clear with elevation of left hemidiaphragm. No evidence of pleural effusion or pneumothorax. IMPRESSION: No acute chest disease. ACT 112: Negative or not required by law. Electronically signed by: Ozzy Ibarra M.D. 12/01/2023 4:[address] 12/01/23 16:39 CT head/brain wo con CLINICAL HISTORY: dizziness Technique: Contiguous axial CT images of the head were acquired from the base of the skull to the vertex without intravenous contrast administration. Images were viewed in brain, subdural and bone windows. Automated dose lowering techniques and/or adjustment according to patient size were utilized for this exam. Comparison: None available at the time of this dictation. Findings: Areas of decreased attenuation are present in the periventricular and subcortical white matter bilaterally consistent with small vessel ischemic disease. Generalized cerebral atrophy with commensurate enlargement of the ventricles, sulci, and cisterns is also present. There is no acute intracranial hemorrhage or evidence of acute territorial infarction. No shift of the midline structures, mass effect, or extra-axial abnormalities are shown. Atherosclerotic calcifications are present in the intracranial segments of the internal carotid arteries. Imaged portions of the paranasal sinuses and mastoid air cells are clear. The orbits appear normal. There are no acute fractures of the calvaria or scalp swelling. Impression: No acute intracranial hemorrhage, no evidence of acute territorial infarction or other acute intracranial disease process. ACT 112: Negative or not required by law. Electronically signed by: Ozzy Ibarra M.D. 12/01/2023 6:08 PM Code Status & VTE Plan Code Status Full code VTE Prophylaxis Plan VTE Prophylaxis will be ordered: Yes Supervising Physician Co-Signing Physician Notes Patient seen and examined, chart reviewed, case discussed with MOISE Boone and I agree with the assessment plan as documented above. Patient is a 73-year-old male with history of sleep apnea, hypothyroidism, GERD, hypertension and Parkinson disease presenting from home with complaint of dizziness. Patient's symptom began on Monday morning when he got out of bed and felt "like an earthquake" and that the room was spinning. He was able to go about his day. But experienced similar symptoms over the next several days. Symptoms typically occur when he changes positions. Today his symptoms were more severe which prompted him to come to the ER Some report of symptomatic bradycardia prior to arrival. Patient's heart rate is ranging low 40s to 50s. He was administered atropine by EMS On physical exam patient is resting comfortably, no acute distress. Awake alert and oriented x 4 Normocephalic/atraumatic, pupils equal round and reactive to light, extraocular muscles intact, no nystagmus, moist mucous membranes, neck supple, no carotid bruit Heartpositive S1/S2, regular, bradycardic at 58 bpm, no murmur/rub/gallops Lungsequal air entry bilaterally, no rales/rhonchi/wheezes Abdomenpositive bowel sounds, soft, nontender, nondistended Extremitieswarm, well-perfused with no clubbing, cyanosis or edema. Labs and images reviewed. Patient with stable hemoglobin = 13.7, mildly low potassium at 3.3. Elevated TSH = 4.999 Chest x-ray is unremarkable CT of the head with no acute intracranial process 73-year-old male presenting with episodic dizziness. Symptoms seem to occur with positional standing. Question vertigo/BPPV versus orthostatic symptoms versus dysautonomia from patient's parkinsonism Uncertain if patient's heart rate is playing a role. He has been heart rate [id number] since being in the ER. Uncertain how low his heart rate was when the atropine was administered Check random cortisol, orthostatic vital signs Meclizine 25 mg p.o. twice daily Gentle hydration with potassium repletion Remainder of plan as above PG Care Time/CCT Total # of Minutes Spent Total Time Spent with Patient: Total time spent is greater than 50% in coordination of care (as documented) at patient's floor/unit and/or counseling patient: C[place] [address] INT INP/OBS CARE MIN Patient Type Established Medical Decision Making Moderate Complexity Diagnoses Symptomatic bradycardia R00.1 Dizziness R42 Gait instability R26.81 Hypokalemia E87.6 HTN (hypertension) I10 Obstructive sleep apnea G47.33
[2023-12-01] MEDS: POTASSIUM CHLORIDE CRTAB 20 MEQ TABCR PO STA (20:32)
[2023-12-01] MEDS: MECLIZINE HCL 25 MG TAB PO SCH (22:43)
[2023-12-02] MEDS: LEVOTHYROXINE SODIUM 75 MCG TABLET PO SCH (05:47)
[2023-12-02 07:07] LABS: BUN Creatinine Ratio 19.2 (10-20); Calcium 9.2 mg/dl (8.6-10.3); Creatinine Clr Calc Pharmacy 94.9 ml/min; Est GFR (African American) 105.3 ml/min; Est GFR (Non-African American) 90.8 ml/min; Potassium 3.5 mmol/L (3.5-5.1)
[2023-12-02 07:15] LABS: Basophils # (auto) 0.03 K/uL (0.00-0.20); Basophils % (auto) 0.7 %; Eosinophils # (auto) 0.09 K/uL (0.00-0.50); Hematocrit (blood only) 39.9 % (42.0-52.0); Hemoglobin 13.3 g/dl (14.0-18.0); Immature Granulocytes # (auto) 0.01 K/uL (0.01-0.20); Immature Granulocytes % (auto) 0.2 %; Lymphocytes # (auto) 1.01 K/uL (1.20-3.40); Lymphocytes % (auto) 22.5 %; Mean Corpuscular Hemoglobin 28.6 pg (25.0-34.0); Mean Corpuscular Hgb Conc 33.3 g/dL (32.0-36.0); Mean Corpuscular Volume 85.8 fL (80.0-100.0); Mean Platelet Volume 10.1 fL (9.4-12.4); Monocytes # (auto) 0.47 K/uL (0.11-0.59); Monocytes % (auto) 10.5 %; Neutrophils # (auto) 2.88 K/uL (1.40-6.50); Neutrophils % (auto) 64.1 %; Platelet Count 200 K/uL (130-400); RDW Coefficient of Variation 13.4 % (11.5-14.5); Red Blood Count 4.65 M/uL (4.70-6.10); White Blood Count 4.49 K/ul (4.8-10.8)
[2023-12-02] MEDS: ATORVASTATIN 20 MG TAB PO SCH (09:02)
[2023-12-02] MEDS: ASPIRIN 81 MG ECTAB PO SCH (09:02)
[2023-12-02] MEDS: POTASSIUM CHLORIDE 10 MEQ TABCR PO SCH (09:02)
[2023-12-02] MEDS: LOSARTAN POTASSIUM 50 MG TAB PO SCH (09:02)
[2023-12-02] MEDS: PANTOprazole 40 MG TAB PO SCH (09:02)
--- NOTE | 2023-12-02 12:03 | Cardiology Consultation ---
Date of Consultation December 02, 2023 Assessment & Plan (1) Sinus bradycardia, chronic: -this has been a longstanding finding. -he has never experienced syncope or presyncope. -do not feel this is any association with his acute dizziness. -sinus bradycardia has been documented back to May 2019. -no further cardiac evaluation necessary. (2) Dizziness: -improved with meclizine. (3) HTN (hypertension): -adequate control on current regimen. (4) Hypercholesterolemia: -continue atorvastatin. History of Present Illness Attending Physician: Leonor Goldman MD History of Present Illness Mr. Donaldson is a 73-year-old male admitted yesterday with dizziness and sinus bradycardia. This consultation was ordered to assistance cardiac management. The patient was in his usual state of health until Monday morning when he became acutely dizzy when getting out of bed. He said that the earth was spinning at that time. His symptoms improved as the day went on. He did well on Monday and , however, had been return of his dizziness Monday. He presented to his primary care physician who noted his heart rate to be in the 50-60 range, therefore, sent him to the emergency room for further care. The patient has had known sinus bradycardia for many years. Looking back through the record it was documented to be in the 50s as far back as March 2019. He has never experienced syncope or presyncope. He further denies exertional chest pain, dyspnea, PND, orthopnea, palpitations, lower extremity edema, and claudication. Currently, patient is resting comfortably in bed without complaints. Claims that his dizziness has improved with the use of meclizine. Past medical and surgical history 1. Hypertension 2. Hypercholesterolemia 3. Hyperglycemia 4. Hypothyroidism 5. GERD 6. TIA 7. Obstructive sleep apnea 8. Nephrolithiasis 9. C-spine stenosis 10. Cervical radiculopathy 11. Parkinson's disease 12. DJD 13. Vitamin B12 deficiency 14. Prostate carcinoma-May 2011 15. 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 Allergies Allergy/AdvReac Type Severity Reaction Status Date / Time No Known Drug Allergies Allergy Verified 12/01/23 13:12 Home Medications Medication Instructions Recorded Confirmed Type aspirin 81 mg tablet,delayed 81 mg PO QAM #30 tabs 04/11/19 12/01/23 History release esomeprazole magnesium 20 mg 40 mg PO QAM 09/30/19 12/01/23 History capsule,delayed release (Nexium) Auto Titrating CPAP #1 ea 09/16/20 11/14/23 Rx tadalafil 5 mg tablet 20 mg (4 x 5 mg) PO ONCE PRN 01/05/21 12/01/23 Rx sexual activity #30 tabs cholecalciferol (vitamin D3) 50 50 mcg PO DAILY 04/27/21 12/01/23 History mcg (2,000 unit) capsule losartan 100 mg tablet See Rx Instructions .Route 01/17/23 12/01/23 Rx .COMPLEX #90 tabs hydrochlorothiazide 12.5 mg tablet 12.5 mg PO DAILY #90 tabs 02/01/23 12/01/23 Rx potassium chloride 10 mEq 10 meq PO DAILY #7 caps 05/26/23 12/01/23 Rx capsule,extended release levothyroxine 75 mcg tablet See Rx Instructions .Route 05/30/23 12/01/23 Rx .COMPLEX #90 tabs cyanocobalamin (vitamin B-12) 1,000 mcg subcut DAILY 1 week #7 mL 07/20/23 12/01/23 Rx 1,000 mcg/mL injection solution atorvastatin 20 mg tablet 20 mg PO QAM #90 tabs 10/10/23 12/01/23 Rx Patient History Medical History History of back problems Prostate cancer Anemia Osteoarthritis Transient ischemic attack (TIA) Right knee pain Prediabetes Organic impotence Obstructive sleep apnea Nephrolithiasis Hypothyroidism Hypercholesterolemia Gait instability Esophageal reflux Degenerative cervical spinal stenosis Cervical radiculopathy Carpal tunnel syndrome, bilateral Allergic rhinitis due to pollen Adenocarcinoma of prostate (~2010) HTN (hypertension) Surgical History History of prostate surgery (05/24/11) H/O lymph node biopsy History of facial surgery History of colonoscopy History of tooth extraction History of tonsillectomy Family History Mother Colorectal cancer Gastric cancer Denies family history of Ovarian cancer Prostate cancer Myocardial infarction Breast cancer Lung cancer Social History Smoking Status: Never smoker Second Hand Exposure: No; Do You Dip or Chew Tobacco: No; Tobacco Cessation Education Requested by Patient: No Hx Alcohol Use: Yes Alcohol type: beer and wine Alcohol Intake Frequency: 2-3 x/Week Alcohol Intake Frequency Comment: every other day Hx Substance Use: No Preferred Language: Faroese Communication Ability: Effective Visual Impairment: Diminished Hearing Ability: Normal Construction Coordinator Required: No Beliefs That Will Affect Care: None marital status: / Current Living Situation: Family Current Living Situation Comment: lives with younger son current occupational status: employed 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 How many Children do You have: 2 Other Information That Helps Us Care for You: No Feels Safe at Home: Yes Safety Concerns: Feels Safe At This Time Childhood Exposure to Second-Hand Smoke: Yes (father smoked) Diet: regular caffeine: Yes (tea in morning ) during the past year weight has: increased > 10 lbs Dental Care, Regularly: Yes Physical Activity Frequency: Daily Physical Activity Frequency Comment: active lifestyle walks a lot for job Seatbelt Use: always Sunscreen Use: No Assistive Devices: None Physical Exam Physical Exam: In general this is a well-developed well-nourished white male in no acute distress. HEENT exam is negative. Neck is supple with full carotid upstrokes. There are no carotid bruits. Jugular venous pressure is flat at 90. There is no thyromegaly. Cardiovascular exam reveals a regular rhythm with normal S1 and S2. Heart sounds are distant. No obvious murmurs. Lungs are clear without rales, rhonchi, or wheezes. Abdomen is soft without bruits. Extremities reveal intact radial artery pulses bilaterally. There is no peripheral edema. Results & Data Vital Signs (Past 12 Hours) Vital Signs Temp Pulse Pulse Resp BP Pulse Ox O2 Del Method 12/02/23 08:02 Room Air 12/02/23 07:32 52 L 12/02/23 07:29 36.5 C 54 L 17 161/87 H 95 Room Air 12/02/23 02:55 36.8 C 55 L 18 134/42 L 92 Room Air Laboratory Results CBC notes hemoglobin 13.3, hematocrit 39.9, white count 4.49, platelet count of [id number]. Electrolytes note a sodium of 143, potassium 3.5, chloride 108, bicarb 30, BUN 15, creatinine 0.78, glucose of 99. High sensitivity troponin was 4.9 on presentation. TSH is mildly elevated 4.999, however, free T4 is normal at 0.88. Diagnostic Findings EKG notes poor quality. There is normal sinus rhythm and an old inferior myocardial infarction cannot be excluded. Chest x-ray shows cardiomegaly and no acute disease. PG Care Time/CCT Total # of Minutes Spent Total Time Spent with Patient: Total time spent is greater than 50% in coordination of care (as documented) at patient's floor/unit and/or counseling patient: Coding Level of Care Code 31945 INT INP/OBS CARE 3/75MIN Diagnoses Sinus bradycardia, chronic R00.1 Dizziness R42 HTN (hypertension) I10 Hypercholesterolemia E78.00
--- NOTE | 2023-12-02 12:07 | Electrocardiogram Report ---
Test Reason : Blood Pressure : / mmHG Vent. Rate : 062 BPM Atrial Rate : 062 BPM P-R Int : 146 ms QRS Dur : 096 ms QT Int : 398 ms P-R-T Axes : 001 -24 003 degrees QTc Int : 403 ms Normal sinus rhythm Inferior infarct (cited on or before 06-JUN-2001) Abnormal ECG When compared with ECG of 10-MAY-2011 12:52, Nonspecific T wave abnormality now evident in Anterior leads Confirmed by Derrell Kay ([id number]) on 12/02/2023 12:07:13 PM Referred By: Confirmed By:Derrell Kay
--- NOTE | 2023-12-02 12:55 | Hospitalist Progress Note ---
Date of Service December 02, 2023 Assessment & Plan (1) Symptomatic bradycardia: Plan: Patient presented for acute onset of dizziness and slow heart rate on 11/30 Given atropine via EMS EKG showed NSR at 62 bpm on arrival; has been 48-62bpm in the ED TSH mildly elevated at 4.99; free T4 WNL Orthostatic vitals ordered, pending Lyme ordered, pending Random cortisol ordered, pending Continuous telemetry monitoring Will defer echocardiogram for now, as patient's symptoms are more aligned with that of vertigo A.m. CBC, BMP card consult orthostatic vitals (2) Dizziness: Plan: Patient reports that he develops symptoms when standing up; feels like the "earth is spinning" Denies hx of stroke or vertigo Head CT negative Will trial meclizine 25 mg p.o. q12h (3) Gait instability: Plan: Patient does not normally ambulate with a walker or cane at home Fall precautions PT/OT consulted (4) Hypokalemia: Plan: Mild; K 3.3 on arrival Patient does take supplemental potassium at home K 20mEq p.o. given Hold HCTZ for now and recheck a.m. labs (5) HTN (hypertension): Plan: Continue Losartan Would caution use of beta-blockers if BP becomes elevated (6) Obstructive sleep apnea: Plan: CPAP HS Plan Disposition: Obs -admit to [facility] telemetry Full code Regular diet VTE PPx: SCDs Admission and Anticipated Discharge Date Admission Date: December 01, 2023 Supervising Physician Co-Signing Physician Notes Patient seen and examined, chart reviewed, case discussed with MOISE Boone and I agree with the assessment plan as documented above. Patient is a 73-year-old male with history of sleep apnea, hypothyroidism, GERD, hypertension and Parkinson disease presenting from home with complaint of dizziness. Patient's symptom began on Monday morning when he got out of bed and felt "like an earthquake" and that the room was spinning. He was able to go about his day. But experienced similar symptoms over the next several days. Symptoms typically occur when he changes positions. Today his symptoms were more severe which prompted him to come to the ER Some report of symptomatic bradycardia prior to arrival. Patient's heart rate is ranging low 40s to 50s. He was administered atropine by EMS On physical exam patient is resting comfortably, no acute distress. Awake alert and oriented x 4 Normocephalic/atraumatic, pupils equal round and reactive to light, extraocular muscles intact, no nystagmus, moist mucous membranes, neck supple, no carotid bruit Heartpositive S1/S2, regular, bradycardic at 58 bpm, no murmur/rub/gallops Lungsequal air entry bilaterally, no rales/rhonchi/wheezes Abdomenpositive bowel sounds, soft, nontender, nondistended Extremitieswarm, well-perfused with no clubbing, cyanosis or edema. Labs and images reviewed. Patient with stable hemoglobin = 13.7, mildly low potassium at 3.3. Elevated TSH = 4.999 Chest x-ray is unremarkable CT of the head with no acute intracranial process 73-year-old male presenting with episodic dizziness. Symptoms seem to occur with positional standing. Question vertigo/BPPV versus orthostatic symptoms versus dysautonomia from patient's parkinsonism Uncertain if patient's heart rate is playing a role. He has been heart rate 4861 since being in the ER. Uncertain how low his heart rate was when the atropine was administered Check random cortisol, orthostatic vital signs Meclizine 25 mg p.o. twice daily Gentle hydration with potassium repletion Remainder of plan as above Subjective reports feeling better, was able to walk with a walker Review of Systems Review of Systems: All systems reviewed & are unremarkable except as noted in Subjective Physical Exam Physical Exam: head atraumatic neck supple chest CTA heart s1s2 regular abdomen soft, nt, nd, bs extremities no edema neuro left arm tremors Results & Data Results & Data Vital Signs (Past 12 Hours) Vital Signs Temp Pulse Pulse Resp BP Pulse Ox O2 Del Method 12/02/23 12:32 37.1 C 56 L 18 171/84 H 95 Room Air 12/02/23 08:02 Room Air 12/02/23 07:32 52 L 12/02/23 07:29 36.5 C 54 L 17 161/87 H 95 Room Air 12/02/23 02:55 36.8 C 55 L 18 134/42 L 92 Room Air PG Care Time/CCT Total # of Minutes Spent Total Time Spent with Patient: Total time spent is greater than 50% in coordination of care (as documented) at patient's floor/unit and/or counseling patient: Coding Level of Care Code 97172 SUB INP/OBS CARE 2/35MIN Diagnoses Symptomatic bradycardia R00.1 Dizziness R42 Gait instability R26.81 Hypokalemia E87.6 HTN (hypertension) I10 Obstructive sleep apnea G47.33
[2023-12-02] MEDS: NIFEdipine EXTENDED REL 30 MG TABCR PO STA (17:24)
[2023-12-03 06:55] LABS: Basophils # (auto) 0.03 K/uL (0.00-0.20); Basophils % (auto) 0.5 %; Eosinophils # (auto) 0.16 K/uL (0.00-0.50); Eosinophils % (auto) 2.7 %; Hematocrit (blood only) 41.8 % (42.0-52.0); Hemoglobin 14.1 g/dl (14.0-18.0); Immature Granulocytes # (auto) 0.01 K/uL (0.01-0.20); Immature Granulocytes % (auto) 0.2 %; Lymphocytes # (auto) 1.18 K/uL (1.20-3.40); Lymphocytes % (auto) 19.7 %; Mean Corpuscular Hemoglobin 29.2 pg (25.0-34.0); Mean Corpuscular Hgb Conc 33.7 g/dL (32.0-36.0); Mean Corpuscular Volume 86.5 fL (80.0-100.0); Mean Platelet Volume 10.4 fL (9.4-12.4); Monocytes # (auto) 0.62 K/uL (0.11-0.59); Monocytes % (auto) 10.3 %; Neutrophils % (auto) 66.6 %; Platelet Count 216 K/uL (130-400); RDW Coefficient of Variation 13.6 % (11.5-14.5); RDW Standard Deviation 42.8 fL (36.4-46.3); Red Blood Count 4.83 M/uL (4.70-6.10)
--- NOTE | 2023-12-03 07:03 | Ultrasound Report ---
US carotid doppler BI CLINICAL HISTORY: 73 years-old Male with dizziness. Acute dizziness COMPARISON: 04/23/2019 TECHNIQUE: Multiple real time sonographic images of the carotid bifurcations were obtained assessing packer scale, color Doppler and spectral wave form appearance FINDINGS: RIGHT CAROTID: The peak systolic velocity measured within the right ICA is 54 cm/sec. The end diast olic velocity measured 22 cm/sec. The ICA to CCA ratio measured 0.74 which correlates with a stenosi s of 0-50%. LEFT CAROTID: The peak systolic velocity measurements in the left ICA is 55 cm/sec. The end diastol ic velocity measured 22 cm/sec. The ICA to CCA ratio measured 0.71 which correlates with a stenosis o f 0-50%. There is normal antegrade vertebral flow bilaterally. IMPRESSION: 1. No hemodynamically significant stenosis or significant atherosclerotic plaquing. 2. Normal antegrade vertebral flow bilaterally. ACT 112: Negative or not required by law. The above report was generated using voice recognition software. It may contain grammatical, syntax o r spelling errors. Electronically signed by: Frederick Mcclure M.D. 12/03/2023 7:02 AM
[2023-12-03 07:19] LABS: BUN Creatinine Ratio 23.8 (10-20); Calcium 9.1 mg/dl (8.6-10.3); Creatinine Clr Calc Pharmacy 92.2 ml/min; Est GFR (African American) 104.2 ml/min; Est GFR (Non-African American) 89.9 ml/min; Potassium 3.7 mmol/L (3.5-5.1)
[2023-12-03] MEDS: ACETAMINOPHEN 325 MG TAB PO PRN (07:50)
--- NOTE | 2023-12-03 10:32 | Discharge Summary ---
Date of Service December 03, 2023 Admission HPI Per Admitting Provider Lizandro is a 73yo male with PMH of ROLAND, hypothyroidism, esophageal reflux, HTN, Parkinson's disease, B12 deficiency, and depression. He presented via EMS on 11/30 for symptomatic bradycardia. Patient reports that he started to feel dizzy when getting up off the bed on Monday morning. He reports he felt like the "earth was spinning". Patient then went to physical therapy around 7 AM that morning, and felt the same way on the hop strainer stable. She was fine on Monday and , then today (Monday) he had recurrence of his dizziness but felt it was stronger and lasted longer. No history of stroke; may have had a TIA several years ago. Patient reports he did have a similar experience with dizziness when walking outside 3-5y ago, and attributed to not drink enough water. He has been drinking increased water this past week for this reason. Patient reports he sleeps well at night. He does not use a walker or cane for ambulation at home. He reports he is still fairly active, and is on the go regularly; works 10 hours/day at a [employer]. Denies any rashes, or tick bites. He does note that he goes outside regularly, but not into the scales. No history of thyroid issues. Patient does have a resting tremor in his left hand, for which she has an appointment scheduled on Monday with Dr. Bone (neurology); this tremor started off , then worsened last May. Patient took all his regular morning medications today; no recent change in medications. No smoking, tobacco use, or recent alcohol use. Strangely, he notes that he has had a couple episodes of "drooling" recently. He did have a dental procedure on Thursday 11/23 to have a crown placed, and had to return on Monday the as it came out; was not given any medications on Monday. Patient reports he did not receive atropine in the ambulance, but is unsure what his heart rate was at that time. He is bradycardic at 53 bpm and mildly hypertensive at 172/100 at time of admission. ROS: Patient endorses dizziness/lightheadedness with standing, mild VELASQUEZ, constipation, numbness in his fingers, and leg weakness. Patient denies fever, chills, night-sweats, changes in vision/hearing, fainting, falls, slurred speech, facial droop, ear pain, rashes, chest pain, SOB, chest palpitations, pleuritic CP, cough, abdominal pain, N/V/D, burning with urination, change in urinary/bowel habits, blood in urine/stool, or pain/num bness/tingling in the legs. Principal Diagnosis vertigo Discharge Exam head atraumatic neck supple chest CTA heart s1s2 regular abdomen soft, nt, nd, bs extremities no edema neuro left arm tremors Discharge Data Allergies Allergy/AdvReac Type Severity Reaction Status Date / Time No Known Drug Allergies Allergy Verified 12/01/23 13:12 Consultations 12/01/23 19:21 ED Decision to Admit Stat 12/02/23 08:01 Consult Cardiology Routine Ordered Studies 12/01/23 16:39 CT head/brain wo con Stat 12/02/23 13:15 Carotid duplex [US carotid doppler BI] DAILY Hospital Course (1) Symptomatic bradycardia: Patient presented for acute onset of dizziness and slow heart rate on 11/30 Given atropine via EMS EKG showed NSR at 62 bpm on arrival; has been 48-62bpm in the ED TSH mildly elevated at 4.99; free T4 WNL Orthostatic vitals ordered, pending Lyme ordered, pending Random cortisol ordered, pending Continuous telemetry monitoring Will defer echocardiogram for now, as patient's symptoms are more aligned with that of vertigo A.m. CBC, BMP card consult orthostatic vitals as per cardiology evaluation patient's bradycardia is chronic , not responsible for his current dizziness (2) Dizziness: Patient reports that he develops symptoms when standing up; feels like the "earth is spinning" Denies hx of stroke or vertigo Head CT negative Will trial meclizine 25 mg p.o. q12h patient reports feeling much better, able to ambulate without difficulties (3) Gait instability: Patient does not normally ambulate with a walker or cane at home Fall precautions PT/OT consulted patient is able to ambulate independently (4) Hypokalemia: Mild; K 3.3 on arrival Patient does take supplemental potassium at home K 20mEq p.o. given Hold HCTZ for now and recheck a.m. labs will discontinue HCTZ at discharge (5) HTN (hypertension): Continue Losartan Would caution use of beta-blockers if BP becomes elevated will add Nifedipine 30 mg daily for better BP control (6) Obstructive sleep apnea: CPAP HS Plan discharge home Total Time Total Time Spent Total Time Spent (In Minutes): 35 Discharge Plan Discharge Items Patient Disposition: Home - Self-Care Reason For Visit: BRADYCARDIA, DIZZINESS Discharge Diagnosis: vertigo Activity: Resume your previous activity Non-emergency contact: Primary Care Provider Call non-emergency contact if: your symptoms worsen Follow-up/Referrals: Orlando German DO [Primary Care Provider] - Diet: Heart Healthy Addtl Attending Provider Instructions: follow up with PCP, monitor blood pressure at home Pending Studies at Discharge: No Stand-Alone Forms: My [employer], Smoking Cessation Medications and DC Order Prescriptions: New meclizine 25 mg Tablet 25 mg PO Q8 PRN (Reason: dizziness) Qty: 20 0RF nifedipine 30 mg tablet extended release 30 mg PO DAILY Qty: 30 0RF Continued levothyroxine 75 mcg tablet See Rx Instructions .ROUTE .COMPLEX Qty: 90 3RF Dose Instruction: TAKE 1 TABLET BY MOUTH EVERY MORNING Rx Instructions: TAKE 1 TABLET BY MOUTH EVERY MORNING atorvastatin 20 mg tablet 20 mg PO QAM Qty: 90 3RF aspirin 81 mg tablet,delayed release (DR/EC) 81 mg PO QAM Qty: 30 tadalafil 5 mg tablet 20 mg PO ONCE PRN (Reason: sexual activity) Qty: 30 11RF cyanocobalamin (vitamin B-12) 1,000 mcg/mL solution 1,000 mcg subcut DAILY 7 Days Qty: 7 0RF Rx Instructions: Weekly injection for 4 weeks, transition to once monthly total of 6 months and reevaluate cholecalciferol (vitamin D3) 50 mcg (2,000 unit) capsule 50 mcg PO DAILY esomeprazole magnesium [Nexium] 20 mg Capsule,Delayed Release(Dr/Ec) 40 mg PO QAM Discontinued hydrochlorothiazide 12.5 mg tablet 12.5 mg PO DAILY Qty: 90 3RF potassium chloride 10 mEq capsule, extended release 10 meq PO DAILY Qty: 7 0RF No Action carbidopa-levodopa 25-100 mg tablet 0.5 tab PO TID Qty: 90 2RF (DME) Auto Titrating CPAP Misc See Rx Instructions .ROUTE .MEDSUPPLY Qty: 1 0RF Rx Instructions: 8-15 cm of water, mask fit to patient comfort, heated modification, compliance download capabilities Discharge Orders: Discharge Order (Routine); Ordered 12/03/23 Ordered By: Leonor Goldman Admission Data Admit Date/Time: 12/01/23 20:21 Attending Provider: Leonor Goldman Admit Provider: Shazia Schmitt Primary Care Provider: Orlando German Other Providers: Domenico Valentin Other Interventions: Discharge Summary Assessment (RN) Last Done: 12/03/23 10:51 Coding Level of Care Code 41068 INP/OBS DISCH >30 MIN Diagnoses Symptomatic bradycardia R00.1 Dizziness R42 Gait instability R26.81 Hypokalemia E87.6 HTN (hypertension) I10 Obstructive sleep apnea G47.33
--- NOTE | 2023-12-03 10:41 | Discharge Summary ---
Date of Service December 03, 2023 Admission HPI Per Admitting Provider Lizandro is a 73yo male with PMH of ROLAND, hypothyroidism, esophageal reflux, HTN, Parkinson's disease, B12 deficiency, and depression. He presented via EMS on 11/30 for symptomatic bradycardia. Patient reports that he started to feel dizzy when getting up off the bed on Monday morning. He reports he felt like the "earth was spinning". Patient then went to physical therapy around 7 AM that morning, and felt the same way on the link trainer teacher stable. She was fine on Monday and , then today (Monday) he had recurrence of his dizziness but felt it was stronger and lasted longer. No history of stroke; may have had a TIA several years ago. Patient reports he did have a similar experience with dizziness when walking outside 3-5y ago, and attributed to not drink enough water. He has been drinking increased water this past week for this reason. Patient reports he sleeps well at night. He does not use a walker or cane for ambulation at home. He reports he is still fairly active, and is on the go regularly; works 10 hours/day at a [employer]. Denies any rashes, or tick bites. He does note that he goes outside regularly, but not into the scales. No history of thyroid issues. Patient does have a resting tremor in his left hand, for which she has an appointment scheduled on Monday with Dr. Bone (neurology); this tremor started off , then worsened last May. Patient took all his regular morning medications today; no recent change in medications. No smoking, tobacco use, or recent alcohol use. Strangely, he notes that he has had a couple episodes of "drooling" recently. He did have a dental procedure on Thursday 11/23 to have a crown placed, and had to return on Monday the as it came out; was not given any medications on Monday. Patient reports he did not receive atropine in the ambulance, but is unsure what his heart rate was at that time. He is bradycardic at 53 bpm and mildly hypertensive at 172/100 at time of admission. ROS: Patient endorses dizziness/lightheadedness with standing, mild VELASQUEZ, constipation, numbness in his fingers, and leg weakness. Patient denies fever, chills, night-sweats, changes in vision/hearing, fainting, falls, slurred speech, facial droop, ear pain, rashes, chest pain, SOB, chest palpitations, pleuritic CP, cough, abdominal pain, N/V/D, burning with urination, change in urinary/bowel habits, blood in urine/stool, or pain/num bness/tingling in the legs. Principal Diagnosis vertigo, HTN Discharge Exam head atraumatic neck supple chest CTA heart s1s2 regular abdomen soft, nt, nd, bs extremities no edema neuro left arm tremors Discharge Data Allergies Allergy/AdvReac Type Severity Reaction Status Date / Time No Known Drug Allergies Allergy Verified 12/01/23 13:12 Consultations 12/01/23 19:21 ED Decision to Admit Stat 12/02/23 08:01 Consult Cardiology Routine Ordered Studies 12/01/23 16:39 CT head/brain wo con Stat 12/02/23 13:15 Carotid duplex [US carotid doppler BI] DAILY Hospital Course (1) Symptomatic bradycardia: Patient presented for acute onset of dizziness and slow heart rate on 11/30 Given atropine via EMS EKG showed NSR at 62 bpm on arrival; has been 48-62bpm in the ED TSH mildly elevated at 4.99; free T4 WNL Orthostatic vitals ordered, pending Lyme ordered, pending Random cortisol ordered, pending Continuous telemetry monitoring Will defer echocardiogram for now, as patient's symptoms are more aligned with that of vertigo A.m. CBC, BMP card consult input appreciated, chronic bradycardia , not related to his symptoms orthostatic vitals no abnormality (2) Dizziness: Patient reports that he develops symptoms when standing up; feels like the "earth is spinning" Denies hx of stroke or vertigo Head CT negative meclizine 25 mg p.o. q12h 12/01 patient reports feeling better 12/02 reports no dizziness, ambulates at baseline carotid doppler no stenosis (3) Gait instability: Patient does not normally ambulate with a walker or cane at home Fall precautions PT/OT consulted ambulates independently (4) Hypokalemia: Mild; K 3.3 on arrival Patient does take supplemental potassium at home K 20mEq p.o. given Hold HCTZ (5) HTN (hypertension): Continue Losartan Would caution use of beta-blockers if BP becomes elevated started Nifedipine, BP better controlled (6) Obstructive sleep apnea: CPAP HS Plan Disposition: Obs -admit to MedSurg telemetry Full code Regular diet VTE PPx: SCDs Total Time Total Time Spent Total Time Spent (In Minutes): 35 minutes Discharge Plan Discharge Items Patient Disposition: Home - Self-Care Reason For Visit: BRADYCARDIA, DIZZINESS Discharge Diagnosis: vertigo Activity: Resume your previous activity Non-emergency contact: Primary Care Provider Call non-emergency contact if: your symptoms worsen Follow-up/Referrals: Orlando German DO [Primary Care Provider] - Diet: Heart Healthy Addtl Attending Provider Instructions: follow up with PCP, monitor blood pressure at home Pending Studies at Discharge: No Stand-Alone Forms: My [employer], Smoking Cessation Medications and DC Order Prescriptions: New meclizine 25 mg Tablet 25 mg PO Q8 PRN (Reason: dizziness) Qty: 20 0RF nifedipine 30 mg tablet extended release 30 mg PO DAILY Qty: 30 0RF Continued losartan 100 mg tablet See Rx Instructions .ROUTE .COMPLEX Qty: 90 3RF Dose Instruction: TAKE 1 TABLET BY MOUTH EVERY DAY Rx Instructions: TAKE 1 TABLET BY MOUTH EVERY DAY levothyroxine 75 mcg tablet See Rx Instructions .ROUTE .COMPLEX Qty: 90 3RF Dose Instruction: TAKE 1 TABLET BY MOUTH EVERY MORNING Rx Instructions: TAKE 1 TABLET BY MOUTH EVERY MORNING atorvastatin 20 mg tablet 20 mg PO QAM Qty: 90 3RF aspirin 81 mg tablet,delayed release (DR/EC) 81 mg PO QAM Qty: 30 tadalafil 5 mg tablet 20 mg PO ONCE PRN (Reason: sexual activity) Qty: 30 11RF cyanocobalamin (vitamin B-12) 1,000 mcg/mL solution 1,000 mcg subcut DAILY 7 Days Qty: 7 0RF Rx Instructions: Weekly injection for 4 weeks, transition to once monthly total of 6 months and reevaluate cholecalciferol (vitamin D3) 50 mcg (2,000 unit) capsule 50 mcg PO DAILY esomeprazole magnesium [Nexium] 20 mg Capsule,Delayed Release(Dr/Ec) 40 mg PO QAM Discontinued hydrochlorothiazide 12.5 mg tablet 12.5 mg PO DAILY Qty: 90 3RF potassium chloride 10 mEq capsule, extended release 10 meq PO DAILY Qty: 7 0RF No Action (DME) Auto Titrating CPAP Misc See Rx Instructions .ROUTE .MEDSUPPLY Qty: 1 0RF Rx Instructions: 8-15 cm of water, mask fit to patient comfort, heated modification, compliance download capabilities Discharge Orders: Discharge Order (Routine); Ordered 12/03/23 Ordered By: Leonor Goldman Admission Data Admit Date/Time: 12/01/23 20:21 Attending Provider: Leonor Goldman Admit Provider: Shazia Schmitt Primary Care Provider: Orlando German Other Providers: Shazia Schmitt; Domenico Valentin Coding Level of Care Code 80127 INP/OBS DISCH >30 MIN Diagnoses Symptomatic bradycardia R00.1 Dizziness R42 Gait instability R26.81 Hypokalemia E87.6 HTN (hypertension) I10 Obstructive sleep apnea G47.33
== END 2023-12-03 12:17 | disposition home or self-care (01) ==
LOC: ED 14:39 → 2W 14:39 → SUATTDRO 20:21 → 2W 21:29